=== PATIENT | female | born 1985 | race Caucasian/White ===

== ENCOUNTER → 2017-01-21 | Outpatient (CLI) | payer OTHER | LOC: LAB 12:28 | DX: R35.0 Frequency of micturition (principal); B96.20 Unspecified Escherichia coli [E. coli] as the cause of diseases classified elsewhere ==

== ENCOUNTER → 2018-05-25 | Outpatient (CLI) | payer OTHER | LOC: LAB 10:23 | DX: R19.7 Diarrhea, unspecified (principal) ==